=== PATIENT | female | born 1955 | race Caucasian/White ===

== ENCOUNTER 2020-01-05 14:01 | Outpatient (CLI) | payer MEDICARE, SELFPAY ==
--- NOTE | ~2020-01-05 | XR_ITS ---
EXAMINATION: XR wrist RT min 3V DATE: 01/05/2020 14:27 INDICATION: Right wrist pain and bruising post fall. TECHNIQUE: Posteroanterior, ulnar deviation, oblique, and lateral views of the right wrist were obtai greg. COMPARISON: none FINDINGS: Diffuse osteopenia. Alignment is normal. No fracture. 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 Focal increased soft tissue density near the ulnar styloid process suggesting possible g anglion cyst. Soft tissues are otherwise unremarkable. IMPRESSION: 1. Mild polyarticular osteoarthritis with typical distribution at the right hand and wrist. No acute osseous abnormality. Reviewed, dictated and finalized at location A. IMPRESSION: 1. Mild polyarticular osteoarthritis with typical distribution at the right [place] d and wrist. No acute osseous abnormality.
== END 2020-01-05 14:02 | disposition home or self-care (01) ==
PROVIDERS: PCP Family Medicine Adolescent Medicine; Visit Provider Family Medicine Adolescent Medicine
DX: M25.531 Pain in right wrist (principal); W19.XXXA Unspecified fall, initial encounter; M19.041 Primary osteoarthritis, right hand
CPT/HCPCS: 73110

== ENCOUNTER 2022-07-01 07:43 | Emergency (ER) | payer MEDICARE, SELFPAY ==
[2022-07-01] VITALS (25 sets, daily range): BP systolic 136–173; BP diastolic 70–86; PULSE 79–102; RESP 12–26; TEMP 37; O2SAT 93–99
--- NOTE | ~2022-07-01 | CT_ITS ---
EXAMINATION: CT abdomen pelvis w con DATE: 07/01/2022 11:42 INDICATION: Lower GI bleed. Influenza A. Diarrhea. TECHNIQUE: Computed tomography (CT) of the abdomen and pelvis was performed with 100 cc Omnipaque 350 intravenous contrast. The dose-length product was 674.09 mGy-cm. Automated exposure control and iter ative reconstruction technique were employed. COMPARISON: None. FINDINGS: There is an 8 mm left lower lobe nodule. There is dependent atelectasis. Heart size is norm al. No significant pleural or pericardial effusion. There are small subcentimeter hypodensities of th e liver, too small to characterize, although likely benign. The spleen, pancreas, adrenal glands and kidneys are unremarkable. Gallbladder is contracted. Possible gallstone or gallbladder polyp. There i s abnormal thickening of the descending colon with surrounding inflammatory change, consistent with c olitis. Nonobstructive bowel gas pattern. No free air or free fluid. There is small hiatal hernia. Sm all fat-containing umbilical hernia. No significant vascular abnormality. No lymphadenopathy.. Modera te lumbar spondylosis. Small amount of gas in the bladder, likely from recent instrumentation. IMPRESSION: 1. Abnormal concentric thickening of the descending colon with mild surrounding inflammation, suspici ous for colitis, most likely infectious or inflammatory. Ischemic colitis is less favored. The celiac axis, SMA and JACKELIN are patent. 2: Left lower lobe nodule measuring 8 mm. Recommend follow-up low dose CT chest or pet/CT scanning fo r further evaluation. 3: Possible gallstone versus gallbladder wall polyp. 4: Small hiatal hernia. Reviewed, dictated and finalized at location A. INIST IMPRESSION: 1. Abnormal concentric thickening of the descending colon with mild surrounding inflammation, suspicious for colitis, most likely infectious or inflammatory. Ischemic colitis is less favored. The celiac axis, SMA and JACKELIN are patent. 2: Left lower lobe nodule measuring 8 mm. Recommend follow-up low dose CT chest or pet/CT scanning for further evaluation. 3: Possible gallstone versus gallbladder wall polyp. 4: Small hiatal hernia.
[2022-07-01 08:36] LABS: Basophils Percent Auto 0.7 % (0.2-1.2); Hematocrit 43.3 % (37.0-47.0); Hemoglobin 14.5 g/dL (12.0-15.0); Immature Granulocyte Absolute 0.01 K/mm3 (0.00-0.031); Immature Granulocyte Percent A 0.2 % (0-0.5); Lymphocytes Absolute Auto 0.36 K/mm3 (0.9-3.2); Lymphocytes Percent Auto 8.6 % (18.3-44.2); Mean Corpuscular HGB Conc 33.5 g/dl (32-36); Mean Corpuscular Hemoglobin 30.1 pg (26-34); Mean Corpuscular Volume 89.8 fl (80-100); Mean Platelet Volume 10.6 fl (7.4-10.4); Monocytes Absolute Auto 0.6 K/mm3 (0.1-0.6); Monocytes Percent Auto 13.5 % (2.6-8.5); Neutrophils Absolute Auto 3.2 K/mm3 (1.3-6.7); Platelet Count Result 215 k/mm3 (150-375); Red Blood Count 4.82 M/mm3 (4.2-5.4); White Blood Count 4.2 K/mm3 (4.5-10.0)
[2022-07-01 09:15] LABS: Alanine Aminotransferase 22 U/L (6-35); Albumin Level 4.3 g/dL (3.5-5.1); Alkaline Phosphatase 85 U/L (38-126); Anion Gap 8 mmol/L (8-16); Aspartate Amino Transferase 22 U/L (14-36); Bilirubin,Total 0.4 mg/dL (0.2-1.3); Blood Urea Nitrogen 15 mg/dL (7-17); Calcium 8.8 mg/dL (8.4-10.2); Carbon Dioxide 26 mmol/L (22-30); Chloride 100 mmol/L (98-107); Estimated CRCL calculation 54 ml/min; Estimated Glomerular Filt Rate > 60; Glucose 114 mg/dL (65-110); Potassium 3.9 mmol/L (3.4-5.0); Sodium 134 mmol/L (137-145)
--- NOTE | 2022-07-01 09:22 | ED.GENADULT ---
HPI - General Adult General Chief complaint: GI Bleed <RICH Lockhart Last Filed: 07/02/22 10:08> Stated complaint: gi bleeding <RICH Lockhart Last Filed: 07/02/22 10:08> Time Seen by Provider: 07/01/22 08:56 <RICH Lockhart Last Filed: 07/02/22 10:08> Source: patient <RICH Lockhart Last Filed: 07/02/22 10:08> Mode of arrival: ambulatory <RICH Lockhart Filed: 07/02/22 10:08> Limitations: no limitations <RICH Lockhart Last Filed: 07/02/22 10:08> History of Present Illness HPI narrative: Patient is a 67-year-old female who presents the ED with report of 1 episode of rectal bleeding. Patient reports she had a very large bowel movement around 4 PM yesterday, which consisted of diarrhea. No blood in that BM. She had a near syncopal episode while having the bowel movement and states she became sweaty, nauseous, lightheaded. She did not pass out or lose consciousness. This morning patient was using the restroom and attempted to pass gas when she passed a small amount of bright red blood. She denied any pain with this. No stool passed. No abdominal pain, nausea, vomiting, headache, dizziness. Patient last had colonoscopy at age 63, which was normal. She denies history of diverticulitis. Patient does report cough X 1 day. No fever, congestion, sore throat, CP, SOB. She is vaccinated for COVID, not influenza. <RICH Lockhart Last Filed: 07/02/22 10:08> Related Data Allergies/adverse reactions: Allergies Allergy/AdvReac Type Severity Reaction Status Date / Time Penicillins Allergy Unknown UNKNOWN Verified 07/01/22 08:02 <RICH Lockhart Last Filed: 07/02/22 10:08> Review of Systems Review of Systems: CONSTITUTIONAL: Denies fever, chills, or sweats. ENT: Denies congestion, sore throat. CARDIOVASCULAR: Denies chest pain. RESPIRATORY: Reports cough. Denies dyspnea. GASTROINTESTINAL: Reports diarrhea, bright red rectal bleeding. Denies abdominal pain, nausea, vomiting. MUSCULOSKELETAL: Denies back pain, joint pain, or myalgia. NEUROLOGIC: Reports near syncopal episode, lightheadedness. Denies headache, numbness, or weakness. <Tg Pedroza PA-C - Last Filed: 07/02/22 10:08> All systems reviewed & are unremarkable except as noted in HPI and below <Tg Pedroza PA-C - Last Filed: 07/02/22 10:08> [facility] Past Medical History Medical History: Medical History No pertinent past medical history <Tg Pedroza PA-C - Last Filed: 07/02/22 10:08> Surgical History Surgical History: Surgical History (Updated 07/01/22 @ 09:25 by Tg Pedroza PA-C) History of colonoscopy <Tg Pedroza PA-C - Last Filed: 07/02/22 10:08> Social History Social History: Social History (Updated 07/01/22 @ 09:25 by Tg Pedroza PA-C) Smoking status: Never smoker <Tg Pedroza PA-C - Last Filed: 07/02/22 10:08> Exam Narrative: GENERAL: Well appearing, obese, non-toxic, in no acute distress. HEAD: Normocephalic, atraumatic. NECK: Supple. No adenopathy, no masses. RESPIRATORY: Airway patent, respirations nonlabored. Clear to auscultation bilaterally, no rales, rhonchi, wheezing. CARDIOVASCULAR: Regular rate and rhythm without murmurs, rubs, or gallops. Peripheral pulses 2+ and equal bilaterally. ABDOMINAL: Soft, no tenderness to palpation throughout abdomen, nondistended, no hepatosplenomegaly. Normoactive BS. RECTAL: Normal tone. Several large external hemorrhoids, no signs of thrombosis or acute bleeding. Grossly bloody stool on TA. No obvious internal hemorrhoids palpated. MUSCULOSKELETAL: Moves all extremities. Strength/ROM intact without gross deformities. SKIN: Warm, dry, normal color. No rashes. NEURO: A&O X3. Speech clear. Cranial nerves II-XII grossly
[2022-07-01 10:02] LABS: Appearance Urine Slightly Cloudy (Clear); Bilirubin Urine Negative (Negative); Blood Urine 1+ (Negative); Color Urine Yellow (Yellow); Glucose Urine UA Negative (Negative); Ketones Urine Negative (Negative); Leukocyte Esterase Ur Negative LEU/UL (Negative); Nitrate Urine Positive (Negative); Protein Urine Negative (Negative); Specific Grav Ur 1.015 (1.001-1.035); Urobilinogen Urine 0.2 mg/dL (<2.0)
[2022-07-01 10:10] LABS: Influenza A QL RT-PCR Positive (Negative); Influenza B QL RT-PCR Negative (Negative); SARS-CoV-2 RNA PCR Negative
[2022-07-01] MEDS: SODIUM CHLORIDE 0.9% IV 1,000 ML 999 ML IV CONT ×2 (10:17→14:48)
[2022-07-01 10:34] LABS: Bacteria Urine Trace /hpf; Mucus Urine Rare /lpf; RBC Urine 0-2 /hpf (0-2); Squamous Epithelial Cell Urine Occasional /hpf (Few); WBC Urine 0-3 /hpf
[2022-07-01 10:44] LABS: Add Urine Microscopic? YES
[2022-07-01 11:42] LABS: Partial Thromboplastin Time 27.1 SECONDS (22.3-36.8)
[2022-07-01] MEDS: PANTOPRAZOLE SODIUM IV 40 MG VIAL IV PUSH (11:53)
[2022-07-01] MEDS: metroNIDAZOLE 500 MG/ISO 100ML 500 MG/100 ML BAG 100 MG IVPB ×2 (12:33→22:14)
[2022-07-01 12:38] LABS: Lactic Acid Reflex 1.2 mmol/L (0.7-2.0)
[2022-07-01] MEDS: CIPROFLOXACIN 400 MG/D5W 200ML 200 ML 200 MG IVPB (13:30)
[2022-07-01 15:58] LABS: Hematocrit 39.1 % (37.0-47.0); Hemoglobin 12.9 g/dL (12.0-15.0)
--- NOTE | 2022-07-01 19:17 | PC.NURSE ---
Assumed care of pt at this time.
[2022-07-01] MEDS: SODIUM CHLORIDE 0.9% IV 1,000 ML 100 ML IV CONT (19:56)
--- NOTE | 2022-07-01 20:23 | PC.NURSE ---
Pt placed in hospital bed for comfort.
[2022-07-01 20:53] LABS: Hematocrit 41.3 % (37.0-47.0); Hemoglobin 13.6 g/dL (12.0-15.0)
[2022-07-02] VITALS (16 sets, daily range): BP systolic 127–150; BP diastolic 65–78; PULSE 68–82; RESP 15–21; O2SAT 92–97
[2022-07-02] MEDS: CIPROFLOXACIN 400 MG/D5W 200ML 200 ML 200 MG IVPB (02:10)
[2022-07-02 02:49] LABS: Hematocrit 37.1 % (37.0-47.0); Hemoglobin 12.3 g/dL (12.0-15.0)
--- NOTE | 2022-07-02 02:58 | PC.NURSE ---
Spoke with Chelsey at [facility] transfer center and states there are no beds at this time.
--- NOTE | 2022-07-02 03:16 | PC.NURSE ---
07/02 0257 [facility] cancelled pt from waitlist
[2022-07-02] MEDS: metroNIDAZOLE 500 MG/ISO 100ML 500 MG/100 ML BAG 100 MG IVPB (05:33)
[2022-07-02] MEDS: SODIUM CHLORIDE 0.9% IV 1,000 ML 100 ML IV CONT (05:33)
[2022-07-02 08:35] LABS: Hematocrit 37.9 % (37.0-47.0)
== END 2022-07-02 10:08 | disposition home or self-care (01) ==
PROVIDERS: Physician Assistant; Emergency Provider Emergency Medicine; PCP Family Medicine Adolescent Medicine
DX: K52.9 Noninfective gastroenteritis and colitis, unspecified (principal); J10.1 Influenza due to other identified influenza virus with other respiratory manifestations; R91.1 Solitary pulmonary nodule; Z20.822 Contact with and (suspected) exposure to COVID-19
CPT/HCPCS: 36415; 74177; 80053; 81001; 83605; 85014; 85018; 85025; 85610; 85730; 86850; 86900; 86901; 87077; 87086; 87186; 87636; 96361; 96365; 96366; 96367; 96375; 99284; C9113; J0744; J7030; Q9967

== ENCOUNTER 2022-08-21 00:39 | Day surgery (SDC) | payer MEDICARE, SELFPAY ==
[2022-08-07 14:19] VITALS: BMI 34.0
[2022-08-21 10:13] VITALS: BP 139/76; PULSE 82; RESP 18; TEMP 36.4; O2SAT 99
[2022-08-21] MEDS: LACTATED RINGERS 1,000 ML 150 ML IV CONT (10:17)
--- NOTE | 2022-08-21 11:01 | P.HP_ITS ---
History of Present Illness History of Present Illness Consent: Risks, benefits, and alternatives have been discussed and questions answered. Patient agrees to proceed with procedure. Chief complaint: rectal bleeding, Abnormal CAT scan, Colitis Narrative: Michelle Hein is a 67 year old female Presents for colonoscopy. Patient reports episode of diarrhea with small amount of bright red blood per rectum that began July 01, 2022. She ultimately went to the emergency room where CT scan revealed a thickened colon. Bleeding subsequently abated. Diarrhea resolved. It was felt she likely had infectious etiology. She presents today for colonoscopy to assess source of rectal bleeding. Patient has a history of hyperplastic colon polyp removed in 2018 at that time colonoscopy mucosa was unremarkable. Family history noncontributory. Review of Systems Review of Systems: Review of systems noncontributory. [facility] Past Medical History Medical History (Updated 07/13/22 @ 11:14 by Afia Tai APRN) Abnormal digestive system diagnostic imaging BRBPR (bright red blood per rectum) Colitis, nonspecific No pertinent past medical history Obesity Surgical History Surgical History History of colonoscopy Social History Social History Smoking status: Never smoker Meds Home Medications and Allergies Home Medications Medication Instructions Recorded Confirmed Type No Home Medications 08/21/22 08/21/22 History Allergies Allergy/AdvReac Type Severity Reaction Status Date / Time Penicillins Allergy Unknown UNKNOWN Verified 08/21/22 10:11 Vital Signs Vital Signs - 24 hr 08/21/22 10:13 Temperature 97.5 F L Pulse Rate 82 Respiratory Rate 18 Blood Pressure 139/76 Pulse Oximetry 99 Oxygen Delivery Room Air Exam Narrative: Physical exam reveals patient to be alert. Vital signs stable. HEENT exam is unremarkable. Patient is anicteric. Lungs are clear to auscultation and percussion. Heart is without murmur or extra sounds. Abdomen bowel sounds present soft nontender with no hepatosplenomegaly. Digital external rectal exam is normal. Assessment and Plan Assessment and plan (1) BRBPR (bright red blood per rectum): Code(s): K62.5 - Hemorrhage of anus and rectum Status: Acute Assessment and Plan: Patient with rectal bleeding that has now resolved. Could be from hemorrhoids versus colitis. Clinically improved. High-fiber diet suggested. Colonoscopy will be performed further recommendations after endoscopy. (2) Abnormal digestive system diagnostic imaging: Code(s): R93.3 - Abnormal findings on diagnostic imaging of other parts of digestive tract Status: Acute Assessment and Plan: CT scan of the abdomen performed because of rectal bleeding and diarrhea revealed thickened colon. Plan for colonoscopy to exclude ongoing colitis. Suspect she had an infection that is now resolved.
--- NOTE | 2022-08-21 11:22 | P.PNAN_ITS ---
Anes - Initial Pre Proc Eval Procedure: Operation Date: 08/21/22 11:30 Proposed Procedures p Colonoscopy - Adam Christianson MD Date/Time: 08/21/22 11:22 Surgeon: Adam Christianson MD Pre Op Diagnosis: rectal bleeding, Abnormal CAT scan, Colitis Patient Data Age: 67 Gender: F Height: 1.52 m Weight: 76.2 kg Last Vital Signs Temp 97.5 F L 08/21/22 10:13 Pulse 82 08/21/22 10:13 Resp 18 08/21/22 10:13 BP 139/76 08/21/22 10:13 Pulse Ox 99 08/21/22 10:13 O2 Del Method Room Air 08/21/22 10:13 Allergies Allergy/AdvReac Type Severity Reaction Status Date / Time Penicillins Allergy Unknown UNKNOWN Verified 08/21/22 10:11 Home Medications Medication Instructions Recorded Confirmed Type No Home Medications 08/21/22 08/21/22 History Patient hx anesthesia problems: none Family hx anesthesia problems: none Results Review: All pre-operative results and documents have been reviewed as part of the pre- operative evaluation. [facility] Past Medical History Medical History (Updated 07/13/22 @ 11:14 by Afia Tai APRN) Abnormal digestive system diagnostic imaging BRBPR (bright red blood per rectum) Colitis, nonspecific No pertinent past medical history Obesity Surgical History Surgical History History of colonoscopy Social History Social History Smoking status: Never smoker Anes - Eval Final PreProcedure Day of Procedure 08/21/22 11:22 Patient weight: obese Heart: regular rate and rhythm Lungs: clear to auscultation Airway: Mallampati scale class II Neurological: alert and oriented Last oral intake: >/= 8 hours ASA classification: II Emergent: no Anesthetic plan: proceed Anesthesia type and monitoring: general GIVS and standard monitoring Results Review: All pre-operative results and documents have been reviewed as part of the pre- operative evaluation. Informed Consent: The patient's anesthetic plan and its attendant risks and benefits were discussed with the patient/family/POA. Questions were solicited and answers provided to the satisfaction of the patient/family/POA.
[2022-08-21 12:16] VITALS: BP 86/51; PULSE 72; RESP 16; O2SAT 96
[2022-08-21 12:26] VITALS: BP 110/64; PULSE 83; RESP 22; O2SAT 96
[2022-08-21 12:36] VITALS: BP 126/78; PULSE 71; RESP 19; O2SAT 97
== END 2022-08-21 12:44 | disposition home or self-care (01) ==
PROVIDERS: PCP Family Medicine Adolescent Medicine; Visit Provider Internal Medicine Gastroenterology
PROC: 0DJD8ZZ Inspection of Lower Intestinal Tract, Via Natural or Artificial Opening Endoscopic (ICD-10-PCS; CPT 45378; principal; 2022-08-21 11:30)
DX: K62.5 Hemorrhage of anus and rectum (principal); K64.8 Other hemorrhoids; Z86.010 Personal history of colon polyps; E66.9 Obesity, unspecified; Z68.32 Body mass index [BMI] 32.0-32.9, adult
CPT/HCPCS: 45380; 88305; J2704; J7120

== ENCOUNTER 2024-10-12 05:44 | Emergency (ER) | payer MEDICARE, SELFPAY ==
[2024-10-12] VITALS (9 sets, daily range): BP systolic 133–187; BP diastolic 64–95; PULSE 64–84; RESP 12–20; TEMP 36.5; O2SAT 94–100
--- NOTE | ~2024-10-12 | CT_ITS ---
CTA brain carotid Ordering provider: Jose Enrique Vaca MD History: . htn, syncope, unsteady gate . Comparison: None. Technique: CT angiogram head and neck was performed following timed intravenous injection of contrast . Thin slice axial images and reformatted coronal images were obtained. Three dimensional reformatted images of the brain were also obtained using a [employer] workstation. Radiation reduction technique ut ilized.The dose-length product was 1490.8 mGy-cm. 100 mL Omnipaque 350 was given IV. FINDINGS: HEAD: --ANTERIOR AND MIDDLE CEREBRAL ARTERIES AND BRANCHES: Normal caliber and contour. --INTERNAL CAROTID ARTERIES: Mild atheromatous disease but no significant stenosis. No occlusion. --BASILAR ARTERY AND BRANCHES: Normal caliber and contour. No atheromatous disease. --POSTERIOR CEREBRAL ARTERIES: Normal caliber and contour --POSTERIOR COMMUNICATING ARTERIES: The right is not visualized which is probably related to congenit al absence or small size. The left is seen and continues as the left posterior cerebral artery. --ANEURYSM: None visualized. --BRAIN: Normal for patient's age. --BONES AND SUPERFICIAL SOFT TISSUES: Normal. --PARANASAL SINUSES AND MASTOIDS: Well aerated. NECK: --RIGHT CERVICAL CAROTID SYSTEM: Mild atheromatous disease of the carotid bulb and proximal internal carotid artery without significant stenosis. Percent stenosis per NASCET criteria is 25%. No carotid dissection. Otherwise, no significant atheromatous disease or stenosis of the cervical carotid syste m. --LEFT CERVICAL CAROTID SYSTEM: Mild atheromatous disease of the carotid bulb and proximal internal c arotid artery without significant stenosis. Percent stenosis per NASCET criteria is 25%. No carotid dissection. Otherwise, no significant atheromatous disease or stenosis of the cervical carotid system. --VERTEBRAL ARTERIES: Normal caliber and contour. --VISUALIZED AORTIC ARCH AND BRANCHING VESSELS: Mild atheromatous disease but no significant stenosis . --SOFT TISSUES: Normal. --CERVICAL SPINE: Age appropriate degenerative changes. IMPRESSION: 1. Normal CTA head. 2. CTA Neck. Percent stenosis per NASCET criteria is 25% bilaterally. Follow-up advised. 3. Left posterior communicating artery continues as posterior cerebral artery. Reviewed, dictated and finalized at location A. IMPRESSION: 1. Normal CTA head. 2. CTA Neck. Percent stenosis per NASCET criteria is 25% bilaterally. Follow- up advised. 3. Left posterior communicating artery continues as posterior cerebral artery.
--- NOTE | ~2024-10-12 | XR_ITS ---
XR chest 1V portable Ordering provider: Leah Pires MD History: 69 years Female with . syncope . Comparison: None. FINDINGS: MEDIASTINUM: The cardiac silhouette is not enlarged. LUNGS: No infiltrates, effusions or pneumothorax. Slightly prominent markings bilaterally with possible underlying fibrotic changes. OTHER: No free air under the diaphragm. Degenerative changes of the spine. IMPRESSION: No acute cardiopulmonary pathology. Reviewed, dictated and finalized at location A.
--- NOTE | 2024-10-12 06:15 | ECG_ITS ---
Test Date: 2024-10-12 06:59:00 Measurements Intervals [place] Rate: 70 P: 55 [place]: 192 QRS: 19 QRSD: 101 T: 14 QT: 400 QTc: 434 Interpretive Statements SINUS RHYTHM No previous ECG available for comparison Electronically Signed On 10-12-2024 14:01:43 CDT by Dawit Pierre D.O
[2024-10-12 06:48] LABS: Basophils Percent Auto 0.8 % (0.2-1.2); Eosinophils Absolute Auto 0.1 K/mm3 (0-0.3); Hematocrit 43.2 % (37.0-47.0); Hemoglobin 14.4 g/dL (12.0-15.0); Immature Granulocyte Absolute 0.01 K/mm3 (0.00-0.031); Immature Granulocyte Percent A 0.2 % (0-0.5); Lymphocytes Absolute Auto 0.85 K/mm3 (0.9-3.2); Lymphocytes Percent Auto 17.2 % (18.3-44.2); Mean Corpuscular HGB Conc 33.3 g/dl (32-36); Mean Corpuscular Hemoglobin 29.4 pg (26-34); Mean Corpuscular Volume 88.2 fl (80-100); Mean Platelet Volume 10.2 fl (7.4-10.4); Monocytes Absolute Auto 0.5 K/mm3 (0.1-0.6); Monocytes Percent Auto 9.5 % (2.6-8.5); Neutrophils Absolute Auto 3.5 K/mm3 (1.3-6.7); Neutrophils Percent Auto 71.3 % (45.5-73.1); Platelet Count Result 224 k/mm3 (150-375); Red Cell Distribution Width 14.3 % (11.5-14.5); White Blood Count 4.9 K/mm3 (4.5-10.0)
[2024-10-12 06:59] LABS: Alanine Aminotransferase 23 U/L (6-35); Albumin Level 4.4 g/dL (3.5-5.1); Alkaline Phosphatase 100 U/L (38-126); Anion Gap 11 mmol/L (4-12); Aspartate Amino Transferase 25 U/L (14-36); Bilirubin,Total 0.4 mg/dL (0.2-1.3); Blood Urea Nitrogen 22 mg/dL (7-17); Calcium 9.3 mg/dL (8.4-10.2); Carbon Dioxide 22 mmol/L (22-30); Chloride 106 mmol/L (98-107); Estimated CRCL calculation 58 ml/min; Estimated Glomerular Filt Rate > 60; Glucose 111 mg/dL (65-110); Potassium 4.1 mmol/L (3.4-5.0); Sodium 139 mmol/L (137-145)
[2024-10-12 08:30] LABS: Add Urine Microscopic? YES; Appearance Urine Clear (Clear); Bacteria Urine 4+ /hpf; Bilirubin Urine Negative (Negative); Blood Urine Negative (Negative); Color Urine Yellow (Yellow); Glucose Urine UA Negative (Negative); Ketones Urine Negative (Negative); Leukocyte Esterase Ur 1+ LEU/UL (Negative); Nitrate Urine Positive (Negative); Non Pathogenic Casts 0-2; Protein Urine Negative (Negative); RBC Urine 0-2 /hpf (0-2); Specific Grav Ur 1.009 (1.001-1.035); Squamous Epithelial Cell Urine Few /hpf (Few); Urobilinogen Urine 0.2 mg/dL (<2.0); pH Urine 5.5 (5.0-9.0)
--- NOTE | 2024-10-12 10:02 | ED.GENADULT ---
HPI - General Adult General Chief complaint: Syncope Stated complaint: dizzy Time Seen by Provider: 10/12/24 06:55 History of Present Illness HPI narrative: 69-year-old female presented to the emergency department for evaluation for vertigo symptoms. Patient did have an ultrasound screening yesterday during when she did have 2 will back and forth in lead her head back during the ultrasound. Patient states after she stood up from that exam and had onset of a spinning sensation. Patient denies any focal numbness or weakness. Patient denied feeling that she was going to pass out but mainly stated that her gait felt unstable due to the spinning sensation. Patient reports symptoms did improve when resting. Patient states symptoms did similar resolve yesterday but then happened again this morning when she was walking to the bathroom. Related Data Allergies Allergy/AdvReac Type Severity Reaction Status Date / Time Penicillins Allergy Unknown UNKNOWN Verified 08/21/22 10:11 Review of Systems Review of Systems: All systems reviewed & are unremarkable except as noted in HPI and below PMFSH Past Medical History Medical History (Updated 10/12/24 @ 13:20 by Kan Munson MD) Obesity BRBPR (bright red blood per rectum) Abnormal digestive system diagnostic imaging Colitis, nonspecific No pertinent past medical history Surgical History Surgical History History of colonoscopy Social History Social History Smoking status: Never smoker Exam Narrative: APPEARANCE: Well appearing, no pain, no distress, well-nourished. HEAD: normocephalic, atraumatic. EYES: PERRLA/EOMI, conjunctivae clear. NOSE: Normal no drainage EARS:TMS clear with good light reflex. THROAT: Pharynx clear, no exudate. NECK: Supple. No adenopathy, no masses. RESPIRATORY: Airway patent, respirations nonlabored. Clear to auscultation bilaterally, no rales, rhonchi, wheezing. CARDIOVASCULAR: Regular rate and rhythm without murmurs rubs or gallops. ABDOMINAL: Soft, nontender, nondistended, normal bowel sounds MUSCULOSKELETAL: Moves all extremities. Strength/ROM intact, No edema, No calf tenderness. NEURO: Alert. Cranial nerves II through XII intact. Good gait. Good coordination SKIN: Warm, dry. Normal Color Course Vital Signs Vital signs: Vital Signs Temperature 97.7 F 10/12/24 05:45 Pulse Rate 69 10/12/24 05:45 Respiratory Rate 18 10/12/24 05:45 Blood Pressure 187/72 H 10/12/24 05:45 Pulse Oximetry 100 10/12/24 05:45 Oxygen Delivery Room Air 10/12/24 05:45 Temperature 97.7 F 10/12/24 05:45 Pulse Rate 84 10/12/24 11:28 Respiratory Rate 13 10/12/24 11:28 Blood Pressure 143/85 H 10/12/24 11:28 Pulse Oximetry 97 10/12/24 11:28 Oxygen Delivery Room Air 10/12/24 05:45 Medical Decision Making MDM Narrative Medical decision making narrative: 69-year-old female presented emergency department for evaluation for vertigo symptoms. Patient was treated with meclizine emergency department does feel improved is able to ambulate to the bathroom and does feel improved. Patient is currently afebrile with no leukocytosis and hemoglobin of 14.4. Patient had no acute abnormalities on her CMP UA was concerning for urinary tract infection with nitrite positive urine leukocyte esterase positive and high white blood cells with +4 bacteria. Patient does have underlying penicillin allergies and was started on Levaquin in the emergency department. CTA brain was negative. Patient will be started on meclizine p.r.n. for vertigo for home along with Levaquin for the underlying urinary tract infection. Patient was updated results of her workup patient was comfortable with plan for discharge and close follow-up. Differential Diagnosis Differential Diagnosis: Vertigo, TIA, CVA, peripheral vertigo Vital Signs Vital Signs: Vital Signs Temperature 97.7 F 10/12/24 05:45 Pulse Rate 69 10/12/24 05:45 Respiratory Rate 18 10/12/24 05:45 Blood Pressure 187/72 H 10/12/24 05:45 Pulse Oximetry 100 10/12/24 05:45 Oxygen Delivery Room Air 10/12/24 05:45 Temperature 97.7 F 10/12/24 05:45 Pulse Rate 84 10/12/24 11:28 Respiratory Rate 13 10/12/24 11:28 Blood Pressure 143/85 H 10/12/24 11:28 Pulse Oximetry 97 10/12/24 11:28 Oxygen Delivery Room Air 10/12/24 05:45 Lab Data Lab results reviewed: Yes I reviewed the patient's lab results. 10/12/24 06:41 10/12/24 06:41 Labs: Lab Results 10/12/24 10/12/24 Range/Units 06:41 08:02 WBC 4.9 (4.5-10.0) K/mm3 RBC 4.90 (4.2-5.4) M/mm3 Hgb 14.4 (12.0-15.0) g/dL Hct 43.2 (37.0-47.0) % MCV 88.2 (80-100) fl MCH 29.4 (26-34) pg MCHC 33.3 (32-36) g/dl RDW 14.3 (11.5-14.5) % Plt Count 224 (150-375) k/mm3 MPV 10.2 (7.4-10.4) fl Immature Gran % (Auto) 0.2 (0-0.5) % Neut % (Auto) 71.3 (45.5-73.1) % Lymph % (Auto) 17.2 L (18.3-44.2) % [place] % (Auto) 9.5 H (2.6-8.5) % Eos % (Auto) 1.0 (0-4.4) % Baso % (Auto) 0.8 (0.2-1.2) % Lymph # (Auto) 0.85 L (0.9-3.2) K/mm3 [place] # (Auto) 0.5 (0.1-0.6) K/mm3 Eos # (Auto) 0.1 (0-0.3) K/mm3 Baso # (Auto) 0.0 (0.0-0.1) K/mm3 Abs Immat Gran (auto) 0.01 (0.00-0.031) K/mm3 Absolute Neuts (auto) 3.5 (1.3-6.7) K/mm3 Absolute Nucleated RBC 0.000 (0.0-0.012) K/mm3 Nucleated RBC % 0.0 (0.0-0.2) % Sodium 139 (137-145) mmol/L Potassium 4.1 (3.4-5.0) mmol/L Chloride 106 (98-107) mmol/L Carbon Dioxide 22 (22-30) mmol/L Anion Gap 11 (4-12) mmol/L BUN 22 H (7-17) mg/dL Creatinine 0.73 (0.7-1.0) mg/dL Estim Creat Clear Calc 58 ml/min Estimated GFR > 60 (59 - ) Glucose 111 H (65-110) mg/dL Calcium 9.3 (8.4-10.2) mg/dL Total Bilirubin 0.4 (0.2-1.3) mg/dL AST 25 (14-36) U/L ALT 23 (6-35) U/L Alkaline Phosphatase 100 (38-126) U/L Total Protein 8.0 (6.3-8.2) g/dL Albumin 4.4 (3.5-5.1) g/dL Urine Color Yellow (Yellow) Urine Appearance Clear (Clear) Urine pH 5.5 (5.0-9.0) Ur Specific [place] 1.009 (1.001-1.035) Urine Protein Negative (Negative) mg/dL Urine Glucose (UA) Negative (Negative) mg/dL Urine Ketones Negative (Negative) mg/dL Ur Blood (Man) Negative (Negative) Urine Nitrate Positive H (Negative) Urine Bilirubin Negative (Negative) Urine Urobilinogen 0.2 (<2.0) mg/dL Leukocyte Esterase Rfl 1+ H (Negative) MARGARET/UL Urine RBC 0-2 (0-2) /hpf Urine WBC 11-20 H (0-3) /hpf Ur Squamous Epith Cells Few (Few) /hpf Urine Bacteria 4+ H /hpf Urine Casts 0-2 Imaging Data Radiologist's impression: Impressions Chest X-Ray 10/12/24 06:42 IMPRESSION: No acute cardiopulmonary pathology. Head/Neck CTA 10/12/24 08:41 IMPRESSION: 1. Normal CTA head. 2. CTA Neck. Percent stenosis per NASCET criteria is 25% bilaterally. Follow-up advised. 3. Left posterior communicating artery continues as posterior cerebral artery. Discharge Plan Discharge Clinical Impression: Vertigo, Acute UTI Patient Disposition: Home, Self-Care Condition: Stable Instructions: Antibiotic Form, Urinary Tract Infection in Women (DC), Benign Paroxysmal Positional Vertigo (DC) Additional Instructions: Antibiotic as directed for urinary tract infection. Meclizine as needed for vertigo control. Have close follow-up with your primary care physician. If you have any worsening symptoms then please call or return to the emergency department. Patient Language: Gambian Prescriptions: New levofloxacin 750 mg tablet 750 mg PO DAILY 5 Days Qty: 5 0RF meclizine 25 mg tablet 25 mg PO BID PRN (Reason: dizziness) 7 Days Qty: 14 0RF Follow-up/Referrals: Kan Munson MD [Primary Care Provider] -
[2024-10-12] MEDS: MECLIZINE HCL 25 MG TABLET PO (10:21)
[2024-10-12] MEDS: levoFLOXacin 750 MG/D5W 150 ML 750 MG/150 ML BAG 100 MG IVPB (10:33)
== END 2024-10-12 12:21 | disposition home or self-care (01) ==
PROVIDERS: Student in an Organized Health Care Education/Training Program; Emergency Provider Emergency Medicine; PCP Family Medicine Adolescent Medicine
DX: R42 Dizziness and giddiness (principal); N39.0 Urinary tract infection, site not specified; E66.9 Obesity, unspecified; Z68.34 Body mass index [BMI] 34.0-34.9, adult
CPT/HCPCS: 36415; 70496; 70498; 71045; 80053; 81001; 85025; 87086; 87186; 93005; 96365; 99284; A9270; J1956; Q9967

== ENCOUNTER 2025-01-17 09:49 | Emergency (ER) | payer MEDICARE, SELFPAY ==
[2025-01-17 10:00] VITALS: BP 111/74; PULSE 81; RESP 16; TEMP 36.7; O2SAT 97
--- NOTE | 2025-01-17 10:42 | ED.GENADULT ---
HPI - General Adult General Chief complaint: Skin/Abscess/Foreign Body Stated complaint: Rash Source: patient Mode of arrival: ambulatory Limitations: no limitations History of Present Illness HPI narrative: Pt presents for evaluation of a pruritic rash to torso and extremities x 4 for the past 5 days. She was working outside just before symptom onset so is wondering whether she may have poison estephania. No new lotions, soaps, detergents or topical products. She denies any difficulty breathing or swallowing. She has tried applying OTC hydrocortisone without much improvement. Related Data Allergies Allergy/AdvReac Type Severity Reaction Status Date / Time Penicillins Allergy Unknown UNKNOWN Verified 01/17/25 09:59 Review of Systems Review of Systems: CONSTITUTIONAL: Denies fever, chills, or sweats. EYES: Denies visual changes, redness, or discharge. ENT: Denies rhinorrhea, congestion, sore throat, or otalgia. CARDIOVASCULAR: Denies chest pain, palpitations, or edema. RESPIRATORY: Denies cough or dyspnea. GASTROINTESTINAL: Denies abdominal pain, nausea, vomiting, or diarrhea. GENITOURINARY: Denies dysuria or hematuria. SKIN: Reports pruritic rash to torso and extremities x4 MUSCULOSKELETAL: Denies back pain, joint pain, or myalgia. NEUROLOGIC: Denies headache, numbness, dizziness, or weakness. PSYCHIATRIC: Denies anxiety or depression. PMFSH Past Medical History Medical History Obesity BRBPR (bright red blood per rectum) Abnormal digestive system diagnostic imaging Colitis, nonspecific No pertinent past medical history Surgical History Surgical History History of colonoscopy Family History Family History Mother Family history non-contributory Social History Social History Smoking status: Never smoker Substance use: never Living arrangements: with family Gender identity (if verbalized by the patient): Female Sexual Orientation (if Verbalized by the Patient): Straight or Heterosexual Spiritual care concerns: No Exam Narrative: GENERAL: Well-appearing, well-nourished, and in no acute distress. HEAD: Normocephalic, atraumatic. EYES: PERRLA and EOMI. ENT: Nares clear, no rhinorrhea or epistaxis. Mucous membranes moist. Oropharynx without tonsillar hypertrophy exudate or other lesions. Bilateral TMs pearly marin nonbulging NECK: Supple. No adenopathy or masses. No carotid bruits or JVD CHEST: Clear to auscultation. No respiratory distress. No wheezes rales or rhonchi HEART: Regular rate and rhythm. No murmur heard. Normal peripheral pulses. ABDOMEN: Soft, nontender, nondistended, normal active bowel sounds. EXTREMITIES: Normal range of motion. No edema. SKIN: There are patchy areas of erythema with some vesicles noted to torso and extremities x 4 NEURO: No focal deficits. Alert and oriented x3. PSYCH: Normal mood and affect. Course Course Emergency Course: This is a 69-year-old female who presented for evaluation of a pruritic rash to her torso and extremities x 4. This is a classic presentation of poison estephania. Will dc with prednisone. Use calamine lotion assist with symptoms. Follow-up with primary care provider. Go to the ER for worsening symptoms. Patient in agreement with plan of care. Level of Care: Express Care Visit Vital Signs Vital signs: Vital Signs Temperature 36.7 C 01/17/25 10:00 Pulse Rate 81 01/17/25 10:00 Respiratory Rate 16 01/17/25 10:00 Blood Pressure 111/74 01/17/25 10:00 Pulse Oximetry 97 01/17/25 10:00 Temperature 36.7 C 01/17/25 10:00 Pulse Rate 81 01/17/25 10:00 Respiratory Rate 16 01/17/25 10:00 Blood Pressure 111/74 01/17/25 10:00 Pulse Oximetry 97 01/17/25 10:00 Medical Decision Making Vital Signs Vital Signs: Vital Signs Temperature 36.7 C 01/17/25 10:00 Pulse Rate 81 01/17/25 10:00 Respiratory Rate 16 01/17/25 10:00 Blood Pressure 111/74 01/17/25 10:00 Pulse Oximetry 97 01/17/25 10:00 Temperature 36.7 C 01/17/25 10:00 Pulse Rate 81 01/17/25 10:00 Respiratory Rate 16 01/17/25 10:00 Blood Pressure 111/74 01/17/25 10:00 Pulse Oximetry 97 01/17/25 10:00 Discharge Plan Discharge Clinical Impression: Poison estephania dermatitis Patient Disposition: Home Condition: Stable Instructions: Antibiotic Form, Poison Estephania (ED) Additional Instructions: DO NOT USE ANY CREAMS OR OINTMENTS OTHER THAN CALAMINE LOTION Patient Language: [place] Prescriptions: New prednisone 20 mg tablet See Rx Instructions .ROUTE .COMPLEX Qty: 18 0RF Rx Instructions: 2 tabs po daily x 5 days, then 1 tab po daily x 5 days, then 1/2 tab po daily x 6 days Follow-up/Referrals: Kan Munson MD [Primary Care Provider] - Time of Disposition: 10:24
== END 2025-01-17 10:30 | disposition home or self-care (01) ==
PROVIDERS: Emergency Provider Nurse Practitioner; PCP Family Medicine Adolescent Medicine
DX: L23.7 Allergic contact dermatitis due to plants, except food (principal); E66.9 Obesity, unspecified; Z68.34 Body mass index [BMI] 34.0-34.9, adult
CPT/HCPCS: 99213; G0463